=== PATIENT | female | born 1960 | race Two or more races ===

== ENCOUNTER 2016-12-17 14:04 | Emergency (ER) | payer MEDICAID ==
[~2016-12-17] VITALS: Ht 172.7 cm; Wt 130.0 kg
[2016-12-17] MEDS ORDERED: LAMO25TA4 PO (14:19)
[2016-12-17] MEDS ORDERED: METF500T4 PO (14:19)
[2016-12-17] MEDS ORDERED: ACETAMINOPHEN 325MG TABLET PO ONE (14:45)
[2016-12-17] MEDS ORDERED: IBUPROFEN 800MG TABLET PO ONE (14:45)
[2016-12-17] MEDS ORDERED: DIAZEPAM 5 MG TABLET PO ONE (14:45)
[2016-12-17 15:40] VITALS: BP 129/64
== END 2016-12-17 17:10 | disposition home or self-care (01) ==
LOC: ER 14:27
DX: M54.9 Dorsalgia, unspecified (principal); E11.9 Type 2 diabetes mellitus without complications; I10 Essential (primary) hypertension; Z88.6 Allergy status to analgesic agent
CPT/HCPCS: 72100; 99284; Z7610

== ENCOUNTER 2021-04-16 15:37 | Emergency (ER) | payer MEDICAID, OTHER ==
[~2021-04-16] VITALS: Ht 162.6 cm; Wt 109.0 kg
[~2021-04-16 15:37] MED LIST: LAMO25TA9 PO; METF-414 PO
[2021-04-16] MEDS ORDERED: KETOROLAC 15MG/ML VIAL IV ONE (17:45)
[2021-04-16 19:02] LABS: BASOPHILS % 0.3 % (0.0-2.0); EOSINOPHILS % 0.5 % (0.0-5.0); HEMATOCRIT. 42.8 % (36.0-48.0); HEMOGLOBIN. 14.3 g/dL (12.0-16.0); MEAN CORPUSCULAR HEMOGLOBIN 26.7 pg (28.0-32.0); MEAN PLATELET VOLUME 8.6 fl (7.4-10.4); MONOCYTES % 7.1 % (2.0-8.0); NEUTROPHILS % 74.1 % (40.0-76.0); PLATELET 242 x1000/uL (130-400); RED BLOOD CELL COUNT 5.35 mill/uL (4.2-5.4); RED CELL DISTRIBUTION WIDTH 15.2 % (11.6-14.6)
[2021-04-16 19:18] LABS: CHLORIDE 100 mEq/L (98-107)
[2021-04-16 19:25] LABS: CLARITY URINE CLEAR (CLEAR); COLOR URINE YELLOW (YELLOW); KETONES URINE TRACE (NEGATIVE); LEUKOCYTE ESTERASE URINE 2+ (NEGATIVE); NITRITE URINE NEGATIVE (NEGATIVE); OCCULT BLOOD URINE NEGATIVE (NEGATIVE); PH URINE 5.5 (4.5-8.0); PROTEIN URINE TRACE (NEGATIVE); SPECIFIC GRAVITY URINE 1.023 (1.005-1.030); UROBILINOGEN URINE 0.2 E.U./dL (0.2-1.0)
[2021-04-16] MEDS ORDERED: FLOV44 INH (19:59)
[2021-04-16 21:00] VITALS: BP 145/86
== END 2021-04-16 21:15 | disposition home or self-care (01) ==
LOC: ER 15:37
DX: B34.9 Viral infection, unspecified (principal); N39.0 Urinary tract infection, site not specified; I10 Essential (primary) hypertension; E11.9 Type 2 diabetes mellitus without complications; Z68.41 Body mass index [BMI] 40.0-44.9, adult; Z71.89 Other specified counseling
CPT/HCPCS: 36415; 71045; 80053; 81003; 83690; 83880; 84484; 85025; 93005; 96374; 99285; J1885